=== PATIENT | male | born 1995 | race African-American/Black ===

== ENCOUNTER 2016-03-30 03:44 | Emergency (ER) | payer SELFPAY ==
[~2016-03-30] VITALS: Ht 180.3 cm; Wt 82.0 kg
[~2016-03-30 03:44] MED LIST: HYDR-3533 PO; LORTA5 PO
[2016-03-30] MEDS ORDERED: SODIUM CHLOR 0.9% 1000 ML INJ 1,000 ML IV SCH (03:54)
[2016-03-30 03:55] VITALS: BP 118/59; PULSE 94; RESP 14; TEMP 98.2; O2SAT 98
[2016-03-30] MEDS ORDERED: PROPOFOL 200 MG/20 ML AMP IV ONE (04:00)
[2016-03-30] MEDS ORDERED: ONDANSETRON HCL 4 MG/2 ML VIAL IVP ONE (04:00)
[2016-03-30] MEDS ORDERED: HYDROmorphone HCL PF 1 MG/ML VIAL IVS ONE (04:00)
[2016-03-30] MEDS ORDERED: SODIUM CHLORIDE 0.9% FLUSH 5 ML FLUSH IVF PRN (04:00)
--- NOTE | 2016-03-30 04:06 | PD ---
HPI Chief Complaint: Injury Time Seen by Provider: 03:49 Travel History International Travel<30 days: No Contact w/Intl Traveler<30days: No Traveled to known affect area: No History of Present Illness HPI 20-year-old male arrives complaining of right shoulder pain. It's constant and severe. Any range of motion worsens the pain. He woke up with the pain. He has a history of right shoulder dislocation with today's presentation illness and his priors. He lifted weights today. He denies fall trauma/mechanism otherwise. No additional complaint. PFSH Past Medical History Musculoskeletal: Yes (dislocation of right shoulder several times) Tetanus Vaccination: > 5 Years Influenza Vaccination: No Past Surgical History AICD: No Joint Replacement: No Pacemaker: No Social History Alcohol Use: Yes ([facility]) Tobacco Use: No Substance Use: No Allergies-Medications (Allergen,Severity, Reaction): Coded Allergies: No Known Allergies (Unverified , 03/30/16) Reported Meds & Prescriptions Reported Meds & Active Scripts Active Physical Exam Narrative GENERAL: 20-year-old male well-nourished well-developed mild distress SKIN: Warm and dry. HEAD: Atraumatic. Normocephalic. EYES: Pupils equal and round. No scleral icterus. No injection or drainage. ENT: No nasal bleeding or discharge. Mucous membranes pink and moist. NECK: Trachea midline. No JVD. CARDIOVASCULAR: Regular rate and rhythm. No murmur appreciated. RESPIRATORY: No accessory muscle use. Clear to auscultation. Breath sounds equal bilaterally. GASTROINTESTINAL: Abdomen soft, non-tender, nondistended. Hepatic and splenic margins not palpable. MUSCULOSKELETAL: Right shoulder extended at about 90 and bent at the elbow. 2 + radial artery pulse. Depression in the region of the glenoid fossa on the right side. NEUROLOGICAL: Awake and alert. No obvious cranial nerve deficits. Motor grossly within normal limits. Normal speech. PSYCHIATRIC: Appropriate mood and affect; insight and judgment normal. Data Data Last Documented VS Vital Signs Date Time Temp Pulse Resp B/P Pulse Ox O2 Delivery O2 Flow Rate FiO2 03/30/16 03:55 98.2 94 14 118/59 98 Room Air VS noted Orders Shoulder, Complete (>2vws) (03/30/16 03:49) Splint Or Brace Apply/Monitor (03/30/16 03:49) Iv Access Insert/Monitor (03/30/16 03:54) Ecg Monitoring (03/30/16 03:54) Oximetry (03/30/16 03:54) Ondansetron Inj (Zofran Inj) (03/30/16 04:00) Sodium Chlor 0.9% 1000 Ml Inj (Ns 1000 M (03/30/16 03:54) Sodium Chloride 0.9% Flush (Ns Flush) (03/30/16 04:00) Hydromorphone Pf Inj (Dilaudid Pf Inj) (03/30/16 04:00) Propofol 200 Mg/20 Ml Inj (Diprivan 200 (03/30/16 04:00) MDM Medical Decision Making Medical Screen Exam Complete: Yes Emergency Medical Condition: Yes Medical Record Reviewed: Yes Differential Diagnosis Right shoulder dislocation anteriorly, posteriorly dislocation, humerus fracture , Hill-Sachs deformity, Bankart lesion Narrative Course While the patient was undergoing initial films of the right shoulder he felt a clunk and the shoulder reduced on its own. Patient able to touch the pinna of the left ear the right hand. Sling and swath applied. Follow-up with orthopedics. Motor sensory intact. Diagnosis Primary Impression: Recurrent dislocation, right shoulder Referrals: Bobby Jackson Jr., MD 3 days Additional Instructions: You have a choice when it comes to health care, and we are glad that you chose [facility]. Hopefully, we have met your expectations on today's visit. You are welcome to return to [facility] at any time, as we are committed to meeting the health care needs of our community. Med/Other Pt SpecificInfo: No Change to Meds Scripts No Active Prescriptions or Reported Meds Disposition: 01 DISCHARGE HOME Condition: Jassi White MD Mar 30, 2016 04:06
--- NOTE | 2016-03-30 04:24 | RADRPT ---
EXAM DATE/TIME: 03/30/2016 04:02 [facility] COMPARISON: SHOULDER RIGHT (1VW), October 13, 2015, 21:24. SHOULDER RIGHT (1VW), October 13, 2015, 20:57. SHOULDE R RIGHT LTD (2VWS), December 25, 2015, 5:57. SHOULDER RIGHT LTD (2VWS), December 25, 2015, 4:28. INDICATIONS : Right shoulder pain starting tonight with no known injury MEDICAL HISTORY : None. SURGICAL HISTORY : None. ENCOUNTER: Initial ACUITY: 1 day PAIN SCORE: 10/10 LOCATION: Right shoulder FINDINGS: There is a Hill-Sachs lesion of the humeral head related to prior glenohumeral joint dislocations. Th e glenoid is intact. Glenohumeral joint alignment is normal at the time of imaging. Acromioclavicular joint within normal limits. Soft tissues are within normal limits. CONCLUSION: Shallow, Hill-Sachs lesion of the humeral head related to prior dislocations. Otherwise normal radiog raphic appearance of the right shoulder. Arnaldo Castillo MD on March 30, 2016 at 4:18 Board Certified Radiologist. This report was verified electronically.
== END 2016-03-30 05:26 | disposition home or self-care (01) ==
LOC: NEPE 03:44
DX: M24.411 Recurrent dislocation, right shoulder (principal); Z87.39 Personal history of other diseases of the musculoskeletal system and connective tissue
CPT/HCPCS: 73030; 99283

== ENCOUNTER 2016-07-25 16:24 | Emergency (ER) | payer SELFPAY ==
[~2016-07-25] VITALS: Ht 182.9 cm; Wt 83.0 kg
[2016-07-25 16:32] VITALS: BP 124/70; PULSE 62; RESP 14; TEMP 97.9; O2SAT 99
--- NOTE | 2016-07-25 16:35 | PD ---
Physical Exam Date Seen by Provider: July 25, 2016 Time Seen by Provider: 16:33 Narrative 20 yo male here for medical clearance. Per patient significant other had vaginal discharge. Concerned for STD. No symptoms. Vitals sign stable. Patient awaiting bed placement. Data Data Last Documented VS Vital Signs Date Time Temp Pulse Resp B/P Pulse Ox O2 Delivery O2 Flow Rate FiO2 07/25/16 16:32 97.9 62 14 124/70 99 MDM Medical Record Reviewed: Yes Supervised Visit with KELLY: No Scripts No Active Prescriptions or Reported Meds Ajay Duran July 25, 2016 16:35
[2016-07-25] MEDS ORDERED: metroNIDAZOLE 500 MG TAB PO ONE (17:00)
[2016-07-25] MEDS ORDERED: ONDANSETRON ODT 4 MG TAB PO ONE (17:00)
--- NOTE | 2016-07-25 17:00 | PD ---
HPI Chief Complaint: Complaint Time Seen by Provider: 16:55 Travel History International Travel<30 days: No Contact w/Intl Traveler<30days: No Traveled to known affect area: No History of Present Illness HPI Patient is a 20-year-old male presenting to emergency for evaluation of possible STD exposure. He has no urinary complaints, no penile discharge, no burning. Patient states that his girlfriend tested positive for a bacterial infection. PFSH Past Medical History Medical History: Denies Significant Hx Musculoskeletal: Yes (dislocation of right shoulder several times) Past Surgical History AICD: No Joint Replacement: No Pacemaker: No Social History Alcohol Use: Yes ([facility]) Tobacco Use: No Substance Use: No Allergies-Medications (Allergen,Severity, Reaction): Coded Allergies: No Known Allergies (Unverified , 07/25/16) Reported Meds & Prescriptions Reported Meds & Active Scripts Active Review of Systems Except as stated in HPI: all other systems reviewed are Neg Physical Exam Narrative GENERAL: Well-nourished, well-developed patient. SKIN: Focused skin assessment warm/dry. HEAD: Normocephalic. EYES: No scleral icterus. No injection or drainage. NECK: Supple, trachea midline. No JVD or lymphadenopathy. CARDIOVASCULAR: Regular rate and rhythm without murmurs, gallops, or rubs. RESPIRATORY: Breath sounds equal bilaterally. No accessory muscle use. GASTROINTESTINAL: Abdomen soft, non-tender, nondistended. MUSCULOSKELETAL: No cyanosis, or edema. BACK: Nontender without obvious deformity. No CVA tenderness. Data Data Last Documented VS Vital Signs Date Time Temp Pulse Resp B/P Pulse Ox O2 Delivery O2 Flow Rate FiO2 07/25/16 16:32 97.9 62 14 124/70 99 Orders Gc And Chlamydia Pcr (07/25/16 16:47) Metronidazole (Flagyl) (07/25/16 17:00) Ondansetron Odt (Zofran Odt) (07/25/16 17:00) MDM Medical Decision Making Medical Screen Exam Complete: Yes Emergency Medical Condition: Yes Interpretation(s) Vital Signs Date Time Temp Pulse Resp B/P Pulse Ox O2 Delivery O2 Flow Rate FiO2 07/25/16 16:32 97.9 62 14 124/70 99 Differential Diagnosis STD versus UTI versus normal exam Narrative Course Patient is a 20-year-old male presenting to the emergency department for evaluation of possible STD exposure. States she was diagnosed with bacterial infection, he contacted her via phone. She had bacterial vaginosis and trichomoniasis. Will obtain GC and chlamydia. Patient will be given metronidazole 2 g by mouth 1 dose now due to trichomoniasis exposure. He was advised to avoid sexual contact and told she has completed antibiotic therapy. He was advised that he would be notified if the GC and chlamydia came back positive. We'll defer treatment for that at this time due to his girlfriend being negative. Patient verbalized understanding of discharge instructions as well as need for follow-up. Patient is stable for discharge. Diagnosis Primary Impression: Exposure to STD Referrals: [facility] Dept. Patient Instructions: General Instructions, Safe Sex (DC), Sexually Transmitted Diseases (ED) Additional Instructions: Follow up with [facility] for further STD screening Avoid sexual contact with partner until she completes antibiotic therapy Do not drink alcohol for at least 48-72 hours after administration of metronidazole, it can cause nausea and vomiting Return to emergency department for any new or worsening symptoms. Maintain safe sexual practices to avoid STD transmission Med/Other Pt SpecificInfo: No Change to Meds Scripts No Active Prescriptions or Reported Meds Disposition: DISCHARGE HOME Condition: Stable Jaqui Reyes July 25, 2016 16:59
[2016-07-25 20:22] LABS: CHLAMYDIA PCR DETECTED (NOT DETECT); NEISSERIA PCR NOT DETECTED (NOT DETECT)
== END 2016-07-25 17:31 | disposition home or self-care (01) ==
LOC: NEPK 16:24
DX: Z20.2 Contact with and (suspected) exposure to infections with a predominantly sexual mode of transmission (principal)
CPT/HCPCS: 87491; 87591; 99283